=== PATIENT | female | born 1945 | race Caucasian/White ===

== ENCOUNTER 2018-11-18 11:43 | Inpatient (IN) | payer OTHER ==
[~2018-11-18] VITALS: Ht 162.6 cm; Wt 53.5 kg
[~2018-11-18 11:43] MED LIST: ALAVERT10 MG; GLUCOPHAGE500 MG; LIPITOR40 MG; LISINOPRIL2.5 MG; TRAZODONE 150150 M1; ULTRAM 50MG TAB50 MG PO; WELLBUTRIN 100100 M1; ZOFRAN4 MG PO; ZOLOFT 50 MG TA50 M1
[2018-11-18 11:44] VITALS: BP 128/54
[2018-11-18 12:38] LABS: URINE BILIRUBIN NEGATIVE (Negative); URINE BLOOD NEGATIVE (Negative); URINE CLARITY CLEAR; URINE COLOR YELLOW; URINE GLUCOSE-RANDOM* NEGATIVE (Negative); URINE KETONES 3+ (Negative); URINE LEUKOCYTES-REFLEX NEGATIVE (Negative); URINE NITRITE-REFLEX NEGATIVE (Negative); URINE PROTEIN (DIPSTICK) 2+ (Negative); URINE SPECIFIC GRAVITY 1.025 (1.005-1.035); URINE UROBILINOGEN 0.2 E.U./dl (0.2-1.0)
[2018-11-18 12:48] LABS: AMP/METHAMP Negative (Negative); BARBITURATES Negative (Negative); BENZODIAZEPINES Negative (Negative); COCAINE Negative (Negative); METHADONE Negative (Negative); OPIATES POSITIVE (Negative); PCP Negative (Negative)
[2018-11-18 12:55] LABS: BASOPHILS 0.7 % (0.0-2.0); EOSINOPHILS 0.5 % (0.0-3.0); HEMATOCRIT 40.9 % (37.0-47.0); HEMOGLOBIN 13.1 gm/dL (12.0-15.0); LYMPHOCYTES 20.5 % (24.0-44.0); MCH 21.8 pg (26.0-34.0); MCHC 31.9 g/dL (28.0-37.0); MCV 68.3 fL (80.0-100.0); MONOCYTES 6.5 % (1.0-8.0); PLATELET COUNT 260 thou/uL (150-400); POLYS 71.8 % (36.0-66.0); RBC 5.99 mil/uL (4.20-5.00); RDW 18.8 % (10.5-14.5); WBC 8.3 thou/uL (4.0-11.0)
[2018-11-18 13:00] LABS: ANION GAP 11 mmol/L (7-16); BUN 25 mg/dL (7-18); CALCIUM 9.4 mg/dL (8.5-10.1); CHLORIDE 96 mmol/L (98-107); CO2 25 mmol/L (21-32); GLUCOSE 186 mg/dL (74-106); POTASSIUM 3.6 mmol/L (3.5-5.1); SODIUM 132 mmol/L (136-145)
[2018-11-18 13:08] LABS: TROPONIN-I <0.06 ng/mL (<0.06)
[2018-11-18 13:31] LABS: AMORPHOUS URATES Few /LPF (None Seen); BACTERIA-REFLEX None Seen /HPF (None Seen); CASTS None Seen /LPF (None Seen); CRYSTALS None Seen /LPF (None Seen); HYALINE CASTS 0-3 Few /LPF (None Seen); SQUAMOUS 0-3 Few /LPF (0-3); URINE RBC None Seen /HPF (0-2); URINE WBC-REFLEX None Seen /HPF (0-5)
[2018-11-18 13:35] LABS: ANISOCYTOSIS 2+; MICROCYTES 2+; OVALOCYTES 1+
[2018-11-18 13:36] LABS: HYPOCHROMASIA 2+
--- NOTE | 2018-11-18 15:54 | NUR ---
DR. SEGAL IS TALKING TO PT'S TO GIVE AN UPDATE.
[2018-11-18 16:56] VITALS: BP 147/66
[2018-11-18 18:49] VITALS: BP 158/55
[2018-11-18 21:25] VITALS: BP 166/71
--- NOTE | 2018-11-18 22:11 | NUR ---
Unable to obtain info from pt regarding dose, frequency and last date/time taken for Bupropion. Pharmacy notified. Will follow up with day-shift RN tomorrow (11/19/18).
[2018-11-19 04:36] LABS: HEMATOCRIT 36.6 % (37.0-47.0); HEMOGLOBIN 11.7 gm/dL (12.0-15.0); MCH 21.9 pg (26.0-34.0); MCV 68.5 fL (80.0-100.0); RBC 5.35 mil/uL (4.20-5.00); WBC 6.2 thou/uL (4.0-11.0)
[2018-11-19 04:47] LABS: CALCIUM 8.1 mg/dL (8.5-10.1); CREATININE 0.6 mg/dL (0.6-1.0); POTASSIUM 3.2 mmol/L (3.5-5.1)
[2018-11-19 04:58] VITALS: BP 116/60
[2018-11-19 07:08] VITALS: BP 134/62
--- NOTE | 2018-11-19 07:29 | NUR ---
Pt a/o x 3. RA. ST/SR. VSS. Up with assist. C/o back pain, pain med given per order. IVF infusing. No apparent distress noted. Bed alarm on. Fall precautions in place. Call light within reach. Shift change report completed with incoming day-shift RN.
[2018-11-19] MEDS ORDERED: LIDODERM1 EACH TRANSDERM (09:05)
[2018-11-19 11:20] VITALS: BP 134/62
--- NOTE | 2018-11-19 12:14 | NUR ---
DIS PT A/O X4, VSS, AFEBRILE, C/O OF TOLERABLE ABD PAIN. PT IS FOR DC TODAY, IV AND HEART MONITOR DC'D. MED SCRIPTS AND DC PACCKET PROVIDED.
[2018-11-19 13:25] VITALS: BP 122/60
--- NOTE | 2018-11-19 13:34 | EKG ---
[address] [employer] [place] [address] ELECTROCARDIOGRAM REPORT Name: YASIR RICHARDSON Room #: 451-P ADM IN M.R.#: [id number] ������������������ Admission: 11/18/18 ������������������ Attend Phys: Ghazal Thomas MD Discharge: ������������������ Date of : 49 Report #: [id number] ����������������������������������������������������������������� [id number] THIS REPORT FOR: //name// [facility] ED Test Date: 2018-11-18 Test Time: 12:34:44 Pat Name: YASIR RICHARDSON Department: Room: [facility] Gender: F Dance Coach: as : 1945 Requested By: Tarik Hauser Order Number: [id number] MD: William Pinto Measurements Intervals [place] Rate: 94 P: 67 ME: 144 QRS: -37 QRSD: 96 T: 23 QT: 410 QTc: 513 Interpretive Statements Sinus rhythm RSR' in V1 or V2, right VCD Inferior infarct, old Prolonged QT interval Compared to ECG 06/03/2012 01:17:59 Inferior Q waves are more prominent Prolonged QT interval now present Electronically Signed On 11-19-2018 13:34:42 CDT by William Pinto [email or web address] ��������������������������������������������� <ELECTRONICALLY SIGNED> ���������������������������������������� By: William Pinto MD, [facility] ��������������������������������������������� 11/19/18 1334 1234 1234 William Pinto MD, [facility] /EPI
== END 2018-11-19 16:17 | disposition home or self-care (01) | DRG 917 ==
LOC: ER 11:43 → EROBS 16:29 → 4W 18:46
PROVIDERS: Emergency Medicine; ADMIT Internal Medicine
DX: T40.691A Poisoning by other narcotics, accidental (unintentional), initial encounter (principal); G93.41 Metabolic encephalopathy; F11.121 Opioid abuse with intoxication delirium; M54.9 Dorsalgia, unspecified; F17.210 Nicotine dependence, cigarettes, uncomplicated; K58.9 Irritable bowel syndrome, unspecified; Z90.710 Acquired absence of both cervix and uterus; I25.2 Old myocardial infarction; Z95.5 Presence of coronary angioplasty implant and graft; Z98.891 History of uterine scar from previous surgery; Z79.899 Other long term (current) drug therapy; Z88.0 Allergy status to penicillin; Z88.2 Allergy status to sulfonamides; Z87.81 Personal history of (healed) traumatic fracture
CPT/HCPCS: 10045